=== PATIENT | female | born 1990 | race Caucasian/White ===

== ENCOUNTER 2024-12-13 07:27 | Emergency (ER) | payer OTHER ==
[2024-12-13 07:35] VITALS: BP 112/68; PULSE 89; RESP 19; TEMP 98.7; BMI 29.2
[2024-12-13] MEDS ORDERED: ACETAMINOPHEN 325 MG TABLET (FP) ONE (07:49)
[2024-12-13] MEDS: ACETAMINOPHEN 500 MG TABLET (FP) PO ONE (07:53)
[2024-12-13] MEDS ORDERED: IBUPROFEN 600 MG TABLET (FP) PO ONE (08:57)
[2024-12-13] MEDS: IBUPROFEN 600 MG TABLET (FP) PO ONE (09:02)
== END 2024-12-13 10:34 | disposition home or self-care (01) ==
LOC: JERFT 07:27 → JER 07:27 → JERFT 10:34
DX: M25.572 Pain in left ankle and joints of left foot (principal); X50.1XXA Overexertion from prolonged static or awkward postures, initial encounter
CPT/HCPCS: 73610-TC-LT-FY; 99283-25